=== PATIENT | male | born 1985 | race African-American/Black ===

== ENCOUNTER 2023-09-08 13:35 | Emergency (ER) | payer SELFPAY ==
[~2023-09-08] VITALS: Ht 162.6 cm; Wt 81.6 kg
[2023-09-08 13:35] VITALS: BP 136/55; PULSE 98; RESP 18; TEMP 98.4; O2SAT 100
[2023-09-08 14:09] LABS: INFLUENZA VIRUS A ANTIGEN NEGATIVE (NEG); INFLUENZA VIRUS B ANTIGEN NEGATIVE (NEG)
[2023-09-08 14:18] VITALS: BP 130/85; PULSE 83; RESP 18; TEMP 98.4; O2SAT 100
== END 2023-09-08 14:22 | disposition home or self-care (01) ==
LOC: ER 13:35
DX: J06.9 Acute upper respiratory infection, unspecified (principal); F12.90 Cannabis use, unspecified, uncomplicated; Z20.822 Contact with and (suspected) exposure to COVID-19
CPT/HCPCS: 87426; 87804; 87880; 99283